=== PATIENT | male | born 1995 | race Caucasian/White ===

== ENCOUNTER 2021-01-09 21:47 | Emergency (ER) | payer BC ==
[~2021-01-09] VITALS: Ht 180.3 cm; Wt 68.2 kg
[~2021-01-09 21:47] MED LIST: PROAIR HFA0.09 MG/AC IH; ZYRTEC 10MG10 MG PO
[2021-01-09 21:53] VITALS: TEMP 98
[2021-01-09] MEDS ORDERED: TYLENOL 325MG325 MG PO (22:41)
[2021-01-09] MEDS ORDERED: ASPIRIN 81M81 MG/TA2 PO (22:41)
[2021-01-09] MEDS ORDERED: COZAAR 25MG25 MG/TAB PO (22:42)
[2021-01-09] MEDS ORDERED: ROBAXIN 75750 MG/TAB PO (22:42)
[2021-01-09] MEDS ORDERED: DOXYCYCLINE HY100 MG PO (22:42)
[2021-01-09] MEDS ORDERED: ZOFRAN 4MG T4 MG/TAB PO (22:43)
[2021-01-09] MEDS ORDERED: COLACE 100100 MG/CAP PO (22:43)
[2021-01-10 01:55] VITALS: BP 118/76; PULSE 64
== END 2021-01-10 02:01 | disposition home or self-care (01) ==
LOC: COL.ER 21:47
DX: T18.128A Food in esophagus causing other injury, initial encounter (principal)
CPT/HCPCS: J1610; J2405; J2704; J7120